=== PATIENT | male | born 1935 | race Caucasian/White ===

== ENCOUNTER → 2016-12-20 | Outpatient (CLI) | payer MEDICARE ==
[~2016-12-20] MED LIST: ACCUPRIL10 MG PO; ALBUTEROL20 ml INH; ALPRAZOLAM PO; ALPRAZOLAM0.25 MG PO; AMLODIPINE BESYL5 MG PO; AMOXICILLIN PO; ANEXSIA 7.5/3251 TA1 PO; ASPIRIN ENTERI325 M1 PO; ASPIRIN PO; ASPIRIN81 M2 PO; ATORVASTATIN CA10 MG; BENAZEPRIL HCL40 MG PO; BENAZEPRIL PO; BENTYL10 MG PO; BENTYL20 MG PO; BUMEX PO; CALCIUM + D 6001 TA1 PO; CARAFATE1 G PO; CLARITHROMYCIN500 MG PO; CLARITIN10 M2 PO; CRESTOR PO; ECOTRIN325 MG PO; FENOFIBRATE160 MG PO; FENOGLIDE40 MG PO; FINASTERIDE5 M1 PO; FLEXERIL; FLOMAX0.4 M1 PO; GLIPIZIDE10 MG/BOTT PO; HCTZ PO; HYDRALAZINE HCL25 MG PO; HYDROCHLOROTHIA25 MG PO; HYDROCODON-ACE1 EACH PO; HYOMAX-SR0.375 MG PO; IBUPROFEN800 MG PO; JANUVIA PO; KCL PO; LIPITOR40 MG PO; LOPRESSOR PO; LORCET PLUS 7.1 EACH PO; LOTENSIN40 MG PO; METFORMIN HCL500 M1 PO; MIRALAX17 G1 PO; NEURONTIN100 MG PO; NEURONTIN300 MG PO; NIACIN500 M2 PO; NIASPAN PO; NORCO1 TAB 10/3 PO; NORVASC PO; NORVASC10 MG PO; NOVOLIN 70/30 V10 M1 SQ; NOVOLIN 70/30 V10 M1 SUBQ; NOVOLIN 70100 UNITS/ SUBQ; NOVOLOG100 U/ML; NOVOLOG7030 SQ; NOVOLOG7030 SUBQ; OMEPRAZOLE40 M1 PO; OMEPRAZOLE40 MG PO; PRILOSEC20 M1 PO; PRILOSEC20 MG; PROSCAR5 MG PO; PROVENTIL INH0.5 ML NEB; SENNA PLUS PO; SENNA S TABLET1 TAB PO; SENNA8.6 M3 PO; SULFAMETHOXAZO1 EAC1 PO; TRIGLIDE160 M1 PO; ZOCOR PO
--- NOTE | ~2016-12-20 | CT4 ---
[facility] A Service of [facility] RADIOLOGY TEXT RESULTS PATIENT: PAOLA DURON LOCATION: [facility] : 37 UNIT #: [id number] AGE: [address]: Camilo Tolbert MD SEX: M ORDER DR: [id number] [facility] [address] [place], [place] [address] [id number] O MR#: [id number] Acc #: [id number] NAME: PAOLA DURON. : 1935 SEX: M STUDY DATE/TIME: 12/20/2016 13:59 UNIT: [facility] ROOM: STUDY DESCRIPTION: CT Abd and Pelv Wo Cont Attending Physician: Camilo Tolbert M.D. Referring Physician: Camilo Tolbert M.D. Ordering Physician: Camilo Tolbert M.D. Primary Care Physician: Ely Soriano A.P.R.N. MEDICAL IMAGING REPORT This report is preliminary unless electronic signature is present EXAM CT abdomen and pelvis without contrast. INDICATION Left lower quadrant abdominal and left-sided flank pain for the past [address] of the abdomen and pelvis. This CT exam was performed with one or more of the following radiation dose reduction techniques: automatic exposure control, adjustment of mA and/or kV according to patient size, and iterative reconstruction. COMPARISON 10/05/2016 FINDINGS ABDOMEN WITHOUT CONTRAST: Included lung bases predominately clear. Cardiomegaly. Liver, spleen, adrenal glands, pancreas, gallbladder unremarkable unenhanced appearance. Tiny nonobstructing calculus lower pole left kidney. Renal vascular calcifications. 5.7 cm cyst in the left kidney. Moderate colonic stool burden and uncomplicated colonic diverticulosis. Normal appendix. No hydronephrosis or radiodense ureteral calculus. PELVIS WITHOUT CONTRAST: Small bilateral fat-containing inguinal hernias. No radiodense bladder calculus. No aggressive appearing bone lesions. 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 IMPRESSION 1. No acute findings. 2. Tiny nonobstructing calculus in the lower pole left kidney. There are renal vascular calcifications in both renal ghassan. 3. Uncomplicated colonic diverticulosis. Moderate colonic stool burden. Dictated by... Jesus Alvarado M.D. THIS IS AN ELECTRONICALLY VERIFIED REPORT Jesus Alvarado M.D. at 12/21/2016 4:50 PM MARIZAD/xavier TD: 12/21/2016 09:40 JOB #: [id number] MEDICAL IMAGING REPORT Page 1 of 1 COPY
== END | disposition home or self-care (01) ==
LOC: CCAT 13:19
DX: R10.32 Left lower quadrant pain (principal); N20.0 Calculus of kidney; N28.89 Other specified disorders of kidney and ureter; K57.30 Diverticulosis of large intestine without perforation or abscess without bleeding
CPT/HCPCS: 74176

== ENCOUNTER → 2017-06-04 | Outpatient (CLI) | payer OTHER ==
--- NOTE | ~2017-06-04 | CR7 ---
[facility]. [facility] A Service of [facility] RADIOLOGY TEXT RESULTS PATIENT: PAOLA DURON LOCATION: [facility] : 37 UNIT #: [id number] AGE: [address]: Hussein Stinson MD SEX: M ORDER DR: [id number] [place] [id number] O MR#: [id number] Acc #: [id number] NAME: PAOLA DURON : 1935 SEX: M STUDY DATE/TIME: 06/04/2017 16:24 UNIT: [facility] ROOM: STUDY DESCRIPTION: CR Abdomen Single AP View Attending Physician: Hussein Stinson M.D. Referring Physician: Hussein Stinson M.D. Ordering Physician: Ely Soriano A.P.R.N. Primary Care Physician: Ely Soriano A.P.R.N. MEDICAL IMAGING REPORT This report is preliminary unless electronic signature is present. EXAM Single view abdomen INDICATIONS Nocturia 4 to 6 months duration. Left flank pain. FINDINGS AP radiographs of the abdomen compared to CT abdomen and pelvis 12/20/2016. The renal shadows are largely obscured due to overlying bowel content. No renal calculi are identified. No bladder calculi. There are phleboliths in the pelvis. No acute osteomyelitis. IMPRESSION Negative KUB Dictated by... Blanco Fermin M.D. THIS IS AN ELECTRONICALLY VERIFIED REPORT Blanco Fermin M.D. at 06/10/2017 8:09 AM PRECIOUS/chicho TD: 06/05/2017 08:55 JOB #: [id number] MEDICAL IMAGING REPORT Page 1 of 1
== END | disposition home or self-care (01) ==
LOC: SRAD 16:16
DX: R35.1 Nocturia (principal)
CPT/HCPCS: 74000